=== PATIENT | female | born 1985 | race Caucasian/White ===

== ENCOUNTER 2022-05-11 01:31 | Emergency (ER) | payer OTHER ==
[~2022-05-11] VITALS: Ht 172.7 cm; Wt 72.1 kg
[2022-05-11] MEDS ORDERED: PLAN B ONE-STE1.5 MG PO (01:55)
[2022-05-11] MEDS ORDERED: ONDANSETRON HCL4 MG PO (06:12)
[2022-05-11] MEDS ORDERED: PEPCID AC20 MG PO (06:12)
== END 2022-05-11 06:41 | disposition home or self-care (01) ==
LOC: ER 01:31
DX: A05.9 Bacterial foodborne intoxication, unspecified (principal); F12.929 Cannabis use, unspecified with intoxication, unspecified